=== PATIENT | male | born 2000 | race African-American/Black ===

== ENCOUNTER 2023-10-29 19:00 | Outpatient (REF) | payer OTHER, SELFPAY ==
--- NOTE | ~2023-10-29 | MR_ITS ---
EXAMINATION: MR ELBOW WITHOUT CONTRAST, RIGHT CLINICAL INFORMATION: Right elbow pain and swelling following an injury. COMPARISON: None available. TECHNIQUE: MRI of the elbow was performed using routine sequences on a high-field scanner. FINDINGS: Ulnar collateral ligament: Complete, full-thickness tear through the mid/proximal aspect of the ulnar collateral ligament which measures approximately 1.0 cm in craniocaudal dimension. Teresa signal and edema within the adjacent soft tissues. Common flexor tendon: Increased T2 signal/edema associated with the common flexor tendon, most prominent posteriorly with extension into the distal myotendinous junctions, consistent with acute strain/partial tear. No full-thickness transverse tendon tear or tendon retraction. Radial collateral ligament: Intact. Common extensor tendon: Intact. Biceps/triceps tendon: Intact. Articular cartilage/bone: Minimal marrow edema within the coronoid process. No fracture. Intact articular cartilage. No osteochondral lesion. Ulnar nerve: Intact. Joint fluid/soft tissues: Small elbow joint effusion. No soft tissue mass. MR/MR elbow RT wo con IMPRESSION: 1. Complete, full-thickness tear through the mid/proximal aspect of the ulnar collateral ligament. Adjacent soft tissue edema. 2. Acute strain/partial tear of the common flexor tendon with extension into the distal myotendinous junctions. No full-thickness transverse tendon tear or tendon retraction. 3. Minimal marrow edema within the coronoid process without an associated fracture line or osteochondral lesion. 4. Small elbow joint effusion. Electronically signed by: Max Esposito MD 10/30/2023 08:17 AM EDT
== END 2023-10-29 19:01 | disposition home or self-care (01) ==
LOC: HO.MRI 19:00
PROVIDERS: Visit Provider Student in an Organized Health Care Education/Training Program
DX: M25.521 Pain in right elbow (principal)
CPT/HCPCS: 73221